=== PATIENT | male | born 1930 | race African-American/Black ===

== ENCOUNTER 2017-02-13 16:27 | Emergency (ER) | payer MEDICARE, OTHER ==
[~2017-02-13] VITALS: Ht 172.7 cm; Wt 118.0 kg
[~2017-02-13 16:27] MED LIST: ASPI-556 PO; CETI10TA58 PO; CLOP75TA14 PO; EZET10 PO; FOSI40TA2 PO; HYDR25TA PO; RANO500T3 PO; SIMV80TA5 PO
[2017-02-13] MEDS ORDERED: ATOR40TA28 PO (16:32)
[2017-02-13] MEDS ORDERED: TraMADol HCL 50 MG TABLET PO ONE (17:15)
[2017-02-13 18:22] VITALS: BP 140/72
== END 2017-02-13 18:27 | disposition home or self-care (01) ==
LOC: EMS 16:29
DX: M54.5 Low back pain (principal); G89.29 Other chronic pain; I25.10 Atherosclerotic heart disease of native coronary artery without angina pectoris; E11.9 Type 2 diabetes mellitus without complications; E78.00 Pure hypercholesterolemia, unspecified; I10 Essential (primary) hypertension; I25.2 Old myocardial infarction; Z95.1 Presence of aortocoronary bypass graft; Z86.73 Personal history of transient ischemic attack (TIA), and cerebral infarction without residual deficits; Z88.8 Allergy status to other drugs, medicaments and biological substances
CPT/HCPCS: 82962; 99283

== ENCOUNTER 2019-07-20 22:37 | Emergency (ER) | payer MEDICARE, OTHER ==
[~2019-07-20 22:37] MED LIST changes: +ATOR40TA28 PO; -EZET10 PO; -FOSI40TA2 PO; -SIMV80TA5 PO
[2019-07-21 00:02] LABS: BASOPHILS % (AUTO) 0.5 % (0.0-2.0); HEMATOCRIT 40.5 % (41-53); HEMOGLOBIN 13.3 g/dL (13.5-17.5); LYMPHOCYTES # (AUTO) 0.7 K/uL (1.0-4.8); LYMPHOCYTES % (AUTO) 13.9 % (22.0-44.0); MEAN CORPUSCULAR HEMOGLOBIN 33.1 pg (26.0-34.0); MEAN CORPUSCULAR HGB CONC 32.8 G/dL (31.0-37.0); MEAN CORPUSCULAR VOLUME 101 fL (80-100); MONOCYTES # (AUTO) 0.4 K/uL (0.1-1.0); MONOCYTES % (AUTO) 6.9 % (2.0-9.0); NEUTROPHILS # (AUTO) 4.1 K/uL (1.8-7.7); NEUTROPHILS % (AUTO) 77.7 % (40.0-70.0); PLATELET COUNT (AUTO) 151 K/uL (150-450); RED BLOOD CELL COUNT(AUTO) 4.01 MIL/uL (4.50-5.90); RED CELL DISTRIBUTION WIDTH 14.3 % (11.5-14.5)
[2019-07-21 00:13] LABS: INR 1.1 (0.9-1.1); PROTHROMBIN TIME 10.8 SEC (9.4-11.6)
[2019-07-21 00:16] LABS: CREATININE 1.7 mg/dL (0.60-1.30); POTASSIUM 4.2 mmol/L (3.5-5.1)
[2019-07-21 00:41] LABS: BILIRUBIN,TOTAL 0.3 mg/dL (0.1-1.0); TOTAL PROTEIN, SERUM 7.6 g/dL (6.4-8.2)
[2019-07-21] MEDS ORDERED: METF-960 PO (01:46)
[2019-07-21 03:20] LABS: APPEARANCE,URINE CLEAR (CLEAR); BILIRUBIN,URINE NEGATIVE (NEGATIVE); GLUCOSE, URINE (UA) 100 mg/dL (NEGATIVE); KETONES,URINE NEGATIVE (NEGATIVE); LEUKOCYTE ESTERASE ,URINE NEGATIVE (NEGATIVE); NITRATE,URINE NEGATIVE (NEGATIVE); OCCULT BLOOD,URINE NEGATIVE (NEGATIVE); PROTEIN,URINE TRACE (NEGATIVE)
[2019-07-21 03:35] LABS: BACTERIA,URINE Few /HPF (None Seen); RBC,URINE 0-2 /HPF (0-2); SQUAMOUS EPITHELIAL CELL,UR Rare /LPF (None Seen); WBC,URINE 0-2 /HPF (0-5)
[2019-07-21 03:45] VITALS: BP 159/79
== END 2019-07-21 04:01 | disposition home or self-care (01) ==
LOC: EMS 22:37
DX: R55 Syncope and collapse (principal); E11.22 Type 2 diabetes mellitus with diabetic chronic kidney disease; I12.9 Hypertensive chronic kidney disease with stage 1 through stage 4 chronic kidney disease, or unspecified chronic kidney disease; N18.9 Chronic kidney disease, unspecified; E78.00 Pure hypercholesterolemia, unspecified; I25.2 Old myocardial infarction; I25.10 Atherosclerotic heart disease of native coronary artery without angina pectoris; Z86.73 Personal history of transient ischemic attack (TIA), and cerebral infarction without residual deficits; Z95.1 Presence of aortocoronary bypass graft; Z91.041 Radiographic dye allergy status; Z79.899 Other long term (current) drug therapy; Z79.82 Long term (current) use of aspirin; Z98.890 Other specified postprocedural states
CPT/HCPCS: 93005